=== PATIENT | female | born 2000 | race Caucasian/White ===

== ENCOUNTER 2022-04-03 19:32 | Emergency (ER) | payer MEDICAID ==
[2022-04-03 21:00] LABS: AMPHETAMINES,URINE NEGATIVE (NEGATIVE); BARBITURATES,URINE NEGATIVE (NEGATIVE); BENZODIAZEPINE,URINE NEGATIVE (NEGATIVE); MDMA (ECSTASY), URINE NEGATIVE (NEGATIVE); METHADONE,URINE NEGATIVE (NEGATIVE); METHAMPHETAMINES,URINE NEGATIVE (NEGATIVE); OPIATES,URINE NEGATIVE (NEGATIVE); OXYCODONE,URINE NEGATIVE (NEGATIVE); PHENCYCLIDINE,URINE NEGATIVE (NEGATIVE); TCA,URINE NEGATIVE (NEGATIVE)
[2022-04-03 21:15] LABS: ACETAMINOPHEN 0 ug/mL (10-30 (Therapeutic)); CHLORIDE,CL 104 mmol/L (98-107); SODIUM,NA 137 mmol/L (136-145)
== END 2022-04-03 22:46 | disposition other institution (70) ==
LOC: DL.ED 19:32
DX: R45.851 Suicidal ideations (principal); E66.9 Obesity, unspecified; Z68.28 Body mass index [BMI] 28.0-28.9, adult; Z88.5 Allergy status to narcotic agent; Z86.16 Personal history of COVID-19
CPT/HCPCS: 36415; 80053; 80143; 80179; 80305-QW; 80307; 81003; 84443; 85025; 99284; 99285